=== PATIENT | male | born 1985 | race Caucasian/White ===

== ENCOUNTER 2021-11-03 00:38 | Emergency (ER) | payer OTHER ==
[~2021-11-03] VITALS: Ht 182.9 cm; Wt 86.2 kg
--- NOTE | 2021-11-03 00:44 | NUR ---
Called first time- no show in lobby or outside.
[2021-11-03 00:46] VITALS: BP 114/81
--- NOTE | 2021-11-03 01:06 | NUR ---
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 Patient tolerated well.
[2021-11-03 01:12] LABS: BASOPHILS % (AUTO) 0.2 % (0.0-2.0); EOSINOPHILS # (AUTO) 0.1 K/uL (0-0.4); EOSINOPHILS % (AUTO) 0.4 % (0.0-4.0); HEMATOCRIT 47.1 % (36-52); HEMOGLOBIN 16.4 g/dL (12.0-18.0); LYMPHOCYTES # (AUTO) 1.9 K/uL (2.0-11.5); LYMPHOCYTES % (AUTO) 14.8 % (20.5-51.1); MEAN CORPUSCULAR HEMOGLOBIN 29 pg (27-31); MEAN CORPUSCULAR HGB CONC 35 g/dL (33-37); MEAN CORPUSCULAR VOLUME 84.2 fL (80-94); MONOCYTES # (AUTO) 0.9 K/uL (0.8-1.0); MONOCYTES % (AUTO) 6.8 % (1.7-9.3); NEUTROPHILS # (AUTO) 10.1 K/uL (1.8-7.7); NEUTROPHILS % (AUTO) 77.8 % (42.2-75.2); PLATELET COUNT (AUTO) 193 K/uL (140-450); RED BLOOD CELL COUNT(AUTO) 5.59 MIL/uL (4.20-6.10); RED CELL DISTRIBUTION WIDTH 12.6 % (11.6-13.7)
[2021-11-03 01:40] LABS: ANION GAP 11.3 (8-16); ASPARTATE AMINOTRANSFERASE 18 U/L (15-37); CARBON DIOXIDE 28.5 mmol/L (21-32); CHLORIDE 104 mmol/L (98-107); CREATININE 1.3 mg/dL (0.6-1.3); GFR ARICAN-AMERICAN 81 mL/min (>90); GLUCOSE 91 mg/dL (74-106); POTASSIUM 3.8 mmol/L (3.5-5.1); SODIUM SERUM 140 mmol/L (136-145); TOTAL BILIRUBIN 0.6 mg/dL (0.0-1.0); UREA NITROGEN, BLOOD 19 mg/dL (7-18)
--- NOTE | 2021-11-03 01:50 | NUR ---
Patient ambulated to bed 11.
--- NOTE | 2021-11-03 01:54 | NUR ---
X-Ray at bedside.
--- NOTE | 2021-11-03 03:11 | NUR ---
Dr. Lowry examining patient.
[2021-11-03] MEDS ORDERED: IBUP-2213 PO (04:24)
[2021-11-03 04:33] VITALS: BP 118/78
== END 2021-11-03 04:33 | disposition home or self-care (01) ==
LOC: MED 00:38
DX: J06.9 Acute upper respiratory infection, unspecified (principal); R07.89 Other chest pain
CPT/HCPCS: 36415; 71045; 80053; 84484; 85025; 93005; 99285; Q0092

== ENCOUNTER 2022-08-20 16:43 | Emergency (ER) | payer SELFPAY ==
[~2022-08-20] VITALS: Ht 175.3 cm; Wt 82.6 kg
[~2022-08-20 16:43] MED LIST: IBUP-2213 PO
[2022-08-20 17:25] VITALS: BP 115/77; PULSE 84; RESP 20; TEMP 98; O2SAT 96
[2022-08-20] MEDS ORDERED: SUD30 PO (18:19)
[2022-08-20] MEDS ORDERED: IBUP-2213 PO (18:19)
[2022-08-20] MEDS ORDERED: PROM118S5 PO (18:19)
[2022-08-20] MEDS ORDERED: AMOX500C25 PO (18:19)
[2022-08-20] MEDS ORDERED: LIDO15SO4 PO (18:19)
[2022-08-20] MEDS ORDERED: PRED20TA5 PO (18:19)
[2022-08-20] MEDS ORDERED: ONDA-188 SL (18:19)
== END 2022-08-20 18:47 | disposition home or self-care (01) ==
LOC: MED 16:43
DX: B34.9 Viral infection, unspecified (principal); R06.02 Shortness of breath; H66.92 Otitis media, unspecified, left ear; J45.909 Unspecified asthma, uncomplicated; Z79.899 Other long term (current) drug therapy
CPT/HCPCS: 99283

== ENCOUNTER 2023-03-26 00:30 | Emergency (ER) | payer OTHER ==
[~2023-03-26] VITALS: Ht 182.9 cm; Wt 83.9 kg
[~2023-03-26 00:30] MED LIST changes: +AMOX500C25 PO; +LIDO15SO4 PO; +ONDA-188 SL; +PRED20TA5 PO; +PROM118S5 PO; +SUD30 PO
[2023-03-26 00:32] VITALS: BP 129/69; PULSE 84; RESP 16; TEMP 97.4; O2SAT 98
[2023-03-26 01:52] LABS: BASOPHILS # (AUTO) 0.1 K/uL (0.00-0.22); EOSINOPHILS # (AUTO) 0.1 K/uL (0-0.4); EOSINOPHILS % (AUTO) 1.1 % (0.0-4.0); HEMOGLOBIN 16.2 g/dL (12.0-18.0); MEAN CORPUSCULAR HEMOGLOBIN 30 pg (27-31); MEAN CORPUSCULAR HGB CONC 35 g/dL (33-37); MONOCYTES # (AUTO) 0.7 K/uL (0.8-1.0); MONOCYTES % (AUTO) 8.5 % (1.7-9.3); NEUTROPHILS # (AUTO) 4.6 K/uL (1.8-7.7); NEUTROPHILS % (AUTO) 54.4 % (42.2-75.2); PLATELET COUNT (AUTO) 182 K/uL (140-450); RED BLOOD CELL COUNT(AUTO) 5.35 MIL/uL (4.20-6.10); RED CELL DISTRIBUTION WIDTH 12.5 % (11.6-13.7); WHITE BLOOD COUNT (AUTO) 8.6 K/uL (4.8-10.8)
[2023-03-26 02:07] LABS: ALANINE AMINOTRANSFERASE 45 U/L (12-78); ALBUMIN 3.6 g/dL (3.4-5.0); ALKALINE PHOSPHATASE 139 U/L (50-136); ANION GAP 11.6 (8-16); ASPARTATE AMINOTRANSFERASE 18 U/L (15-37); CALCIUM 8.7 mg/dL (8.5-10.1); CARBON DIOXIDE 30.4 mmol/L (21-32); CHLORIDE 104 mmol/L (98-107); GFR ARICAN-AMERICAN 109 mL/min (>90); GFR NON ARICAN-AMERICAN 90 mL/min (>90); GLUCOSE 93 mg/dL (74-106); SODIUM SERUM 142 mmol/L (136-145); TOTAL BILIRUBIN 0.9 mg/dL (0.0-1.0); TOTAL PROTEIN, SERUM 8.4 g/dL (6.4-8.2); UREA NITROGEN, BLOOD 14 mg/dL (7-18)
[2023-03-26] MEDS: ASPIRIN 81 MG TAB.CHEW PO ONE (04:15)
[2023-03-26 06:10] VITALS: BP 131/64; PULSE 78; RESP 16; TEMP 98.3; O2SAT 97
== END 2023-03-26 06:02 | disposition home or self-care (01) ==
LOC: MED 00:30
DX: R07.89 Other chest pain (principal); M79.605 Pain in left leg; J45.909 Unspecified asthma, uncomplicated; Z79.899 Other long term (current) drug therapy
CPT/HCPCS: 36415; 71045; 80053; 84484; 85025; 93005; 93970; 99285; Q0092